=== PATIENT | male | born 1975 | race American Indian/Alaskan Native ===

== ENCOUNTER 2018-12-11 11:33 | Observation (INO) | payer OTHER ==
[2018-12-11] MEDS ORDERED: NA CHLORIDE 0.9% 500 ML ONE (11:50)
[2018-12-11] MEDS ORDERED: TETANUS & DIPHTHERIA TOX,ADULT 0.5 ML VIAL ONE (11:50)
[2018-12-11] MEDS ORDERED: KETOROLAC 30 MG/ML INJ ONE ×2 (11:50→16:05)
[2018-12-11] MEDS ORDERED: CEFAZOLIN/SWI 1gm 2 GM/20 ML SYR ONE (11:51)
--- NOTE | 2018-12-11 12:48 | RAD REPORT ---
EXAM DESCRIPTION: RAD - Foot Left 3 View - 12/11/2018 12:41 pm CLINICAL HISTORY: PAIN COMPARISON: No comparisons FINDINGS: Type metallic fragments are seen superimposed on the base of the third toe. Oblique fractu re is noted involving the proximal phalanx of third toe. Questionable deformity is also seen along th e base of the proximal phalanx of the fourth toe as well.
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
[2018-12-11 13:22] LABS: Absolute Lymphocytes (CBC) 1.5 K/uL (0.7-4.9); Basophils % 0.4 % (0-1.3); Hematocrit 40.1 % (39.6-49.0); Lymphocytes % 11.7 % (15.3-44.8); MPV 8.3 fL (7.6-11.3); RBC Red Blood Cell Count 4.36 M/uL (4.33-5.43)
[2018-12-11 13:29] LABS: Protime INR 1.07
--- NOTE | 2018-12-11 13:42 | RAD REPORT ---
EXAM DESCRIPTION: RAD - Chest Single View - 12/11/2018 1:32 pm CLINICAL HISTORY: COUGH Chest pain. COMPARISON: No comparisons FINDINGS: Portable technique limits examination quality. The lungs are grossly clear. The heart is normal in size. No displaced fractures. IMPRESSION: No acute intrathoracic process suspected.
[2018-12-11 13:56] LABS: Bilirubin Total 0.4 mg/dL (0.2-1.0); Potassium 4.5 mmol/L (3.5-5.1); Protein, Total 7.2 g/dL (6.4-8.2)
[2018-12-11] MEDS ORDERED: MORPHINE 4 MG/ML SYR IV PRN (14:25)
[2018-12-11] MEDS ORDERED: ONDANSETRON 4 MG/2 ML VIAL IV PRN (14:25)
[2018-12-11] MEDS ORDERED: ACETAMINOPHEN 500 MG TAB PO PRN (14:25)
[2018-12-11 14:29] VITALS: BMI 25.0
[2018-12-11] MEDS: NA CHLORIDE 0.9% 1,000 ML IV SCH ×3 (15:11→22:25)
--- NOTE | 2018-12-11 15:18 | EKG ---
Test Date: 2018-12-11 Test Time: 13:06:32 Autoclave Operator: СВЕТЛАНА MEASUREMENT RESULTS: Intervals: Rate: 52 OK: 172 QRSD: 100 QT: 414 QTc: 385 [place]: P: 70 OK: 172 QRS: 62 T: 36 INTERPRETIVE STATEMENTS: Sinus bradycardia Otherwise normal ECG No previous ECG available for comparison Electronically Signed On 12-11-18 15:17:22 CDT by Osmel Thomas
[2018-12-11] MEDS ORDERED: FENTANYL CITR 100 MCG/2 ML ONE ×2 (15:28→16:17)
[2018-12-11] MEDS ORDERED: PROPOFOL 200 MG/20 ML VIAL IV ONE (15:30)
[2018-12-11] MEDS ORDERED: LIDOCAINE 2% MPF 5 ML VIAL ONE (15:30)
[2018-12-11] MEDS ORDERED: ONDANSETRON 4 MG/2 ML VIAL ONE (16:05)
[2018-12-11] MEDS ORDERED: dexAMETHasone 10 MG/ML VIAL ONE (16:05)
[2018-12-11] MEDS ORDERED: GLYCOPYRROLATE 0.2 MG/ML SYR ONE ×2 (16:25→16:27)
[2018-12-11] MEDS ORDERED: CEFAZOLIN 2 GM in NA CHLORIDE 0.9% 100 ML IVPB SCH (17:00)
[2018-12-11] MEDS: MEPERIDINE HCL 25 MG/0.5 ML ONE ×2 (17:13→17:46)
[2018-12-11] MEDS: HYDROMORPHONE HCL 1 MG/ML INJ ONE ×2 (17:32→17:37)
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
[2018-12-11] MEDS ORDERED: LORazepam 2 MG/ML VIAL IV ONE (18:00)
--- NOTE | 2018-12-11 19:13 | RAD REPORT ---
EXAM DESCRIPTION: RAD - Foot Left 2 View - 12/11/2018 7:06 pm CLINICAL HISTORY: Left third phalanx fracture repair repair, foreign body removal COMPARISON: None. FINDINGS: There were 14 portable C-arm views submitted from fluoroscopic assisted placement of fract ure fixation hardware and foreign body removal. No suspicious or unexpected finding. Fluoro time was 0.3 minutes.
[2018-12-11] MEDS ORDERED: CEFAZOLIN/SWI 2gm 2 GM/20 ML SYR IV SCH (20:00)
[2018-12-11] MEDS: CEFAZOLIN/SWI 1gm 1 GM/10 ML SYR IV SCH (20:09)
[2018-12-11] MEDS ORDERED: CIPROFLOXACIN 400mg IV 400 MG/200 ML BAG IV SCH (21:00)
[2018-12-12] MEDS: HYDROCODONE/APAP 10/325 TAB PO PRN ×2 (00:03→08:00)
[2018-12-12] MEDS: CEFAZOLIN/SWI 1gm 1 GM/10 ML SYR IV SCH (05:27)
[2018-12-12] MEDS: NA CHLORIDE 0.9% 1,000 ML IV SCH (05:32)
[2018-12-12 06:11] LABS: Absolute Lymphocytes (CBC) 1.1 K/uL (0.7-4.9); Basophils % 0.1 % (0-1.3); Hematocrit 39.6 % (39.6-49.0); MPV 8.8 fL (7.6-11.3); RBC Red Blood Cell Count 4.29 M/uL (4.33-5.43)
[2018-12-12 06:24] LABS: Potassium 4.4 mmol/L (3.5-5.1)
[2018-12-12 09:24] VITALS: BP 123/57; TEMP 98.2
[2018-12-12 10:12] LABS: Blood Morphology Comment NOT SEEN (NOT SEEN); Platelet Estimate ADEQ; Urine White Blood Cell Casts OK
[2018-12-12 10:24] VITALS: O2SAT 99
[2018-12-12] MEDS ORDERED: TRAMADOL HCL 50 MG TAB PO PRN (10:33)
[2018-12-12] MEDS ORDERED: CEFAZOLIN/SWI 1gm 1 GM/10 ML SYR IV ONE (11:00)
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
== END 2018-12-12 12:25 | disposition home or self-care (01) ==
LOC: ER 11:33 → ERHOLD 13:09 → 2ND 13:56
PROVIDERS: ADMIT Family Medicine; ATTEND Family Medicine
PROC: 0QSR04Z Reposition Left Toe Phalanx with Internal Fixation Device, Open Approach (ICD-10-PCS; principal; 2018-12-11 16:00)
DX: S92.512B Displaced fracture of proximal phalanx of left lesser toe(s), initial encounter for open fracture (principal); W33.01XA Accidental discharge of shotgun, initial encounter; Y93.89 Activity, other specified; Y92.9 Unspecified place or not applicable; F17.210 Nicotine dependence, cigarettes, uncomplicated
CPT/HCPCS: 28525; 20690; 96361; 93005; 85025 ×2; 80048; 36415; 85610; 88300; 85730; 80053; 71045; 73630; 73620; 90471; 90714; 97116; 97161; 96375; 96374; 99285; 11012; J2704; J3010 ×2; J1100; J2175; J1170; J0690 ×3; J7030 ×3; J2405 ×2; G0378 ×2